=== PATIENT | male | born 1940 | race Caucasian/White ===

== ENCOUNTER 2016-08-11 17:57 | Inpatient (IN) | payer MEDICARE, OTHER ==
--- NOTE | 2016-08-11 18:39 | RAD ---
INDICATION: Neurologic changes code [id number]. COMPARISON: There are no prior studies available for comparison. TECHNIQUE: Contiguous axial sections of the brain were obtained from the skull base to the vertex without contrast. FINDINGS: The ventricles, cisterns and sulci are within normal limits. No significant focal abnormality or mass effect is seen. There is no evidence for hemorrhage. No significant focal osseous abnormality is seen. The visualized portion of the paranasal sinuses and mastoid air cells appear clear. The results of this exam were called to the referring clinician at 1833 hours. IMPRESSION: NO EVIDENCE FOR GROSS ACUTE INFARCT, MASS EFFECT OR HEMORRHAGE.
--- NOTE | 2016-08-11 18:44 | RAD ---
INDICATION: Altered mental status. COMPARISON: Comparison is made with a prior chest x-ray study from February 03, 2011. TECHNIQUE: A portable view of the chest was obtained. FINDINGS: Cardiac and mediastinal contours appear to be within normal limits. The lungs are clear. No pleural effusion is seen. IMPRESSION: NO EVIDENCE FOR ACUTE DISEASE.
[2016-08-11 18:46] LABS: Hematocrit 41 % (42-52); Hemoglobin 13.9 g/dl (14.0-18.0); Mean Corpuscular HGB Conc 34 g/dl (31-36); Mean Corpuscular Hemoglobin 28 pg (27-31); Mean Corpuscular Volume 85 fL (80-94); Mean Platelet Volume 8 um3 (7.4-10.4); Red Cell Distribution Width 15 % (10.5-15); White Blood Count 6.2 10^3/ul (3.5-10.8)
[2016-08-11 18:59] LABS: Albumin 4.2 g/dL (3.2-5.2); BUN/Creatinine Ratio 21.2 (8-20); Calcium 9.5 mg/dL (8.6-10.3); EGFR Non-African American 52.9 (>60); HDL Cholesterol 31.7 mg/dL; Total Bilirubin 0.4 mg/dL (0.2-1.0); Total Protein 7.2 g/dL (6.4-8.9)
[2016-08-11 19:00] LABS: Troponin I 0.01 ng/mL (<0.04)
[2016-08-11] MEDS ORDERED: NS 0.9% 1000 ML* 1,000 ML IV ONE (19:13)
[2016-08-11] MEDS ORDERED: Iodixanol* (CONTRAST) 320 MG/ML 100 ML SDV IV ONE (19:28)
[2016-08-11] MEDS ORDERED: HYDROmorphone INJ* 1 MG/ML CARPUJECT SYRINGE IV ONE (20:33)
[2016-08-11] MEDS ORDERED: Ondansetron INJ* 2 MG/ML VIAL IV ONE (20:33)
--- NOTE | 2016-08-11 20:43 | RAD ---
INDICATION: Confusion. COMPARISON: Comparison is made with a prior CT of the brain from August 11, 2016 and a prior carotid duplex ultrasound from December 09, 2011. TECHNIQUE: A CT angiogram of the head and neck was performed following intravenous injection of 80 ml of Visipaque 320 nonionic contrast. Contiguous axial sections were obtained from the thoracic inlet through the skull vertex. Images were reconstructed in the coronal and sagittal planes and in a 3-D volume rendered format. The distal cervical internal carotid artery diameter is used as the denominator for stenosis measurement. FINDINGS: RIGHT CAROTID: The common carotid artery is widely patent. There is mild plaque within the carotid bulb and proximal internal carotid artery causing less than a 20% stenosis. The internal carotid artery is otherwise widely patent. LEFT CAROTID: The common carotid artery is widely patent. There is mild to moderate calcific and soft plaque within the carotid bulb and proximal internal carotid artery giving rise to less than a 30% stenosis. The internal carotid artery is otherwise widely patent. VERTEBRALS: The vertebral arteries appear patent. CTA BRAIN: There is moderate calcific plaque within the cavernous portion of the internal carotid arteries. There is no evidence for high-grade stenosis or occlusion. The anterior and middle cerebral arteries also appear patent without evidence for high-grade stenosis or occlusion. The vertebral, basilar and posterior cerebral arteries appear patent without evidence for high-grade stenosis or occlusion. The right posterior cerebral artery arises from the posterior communicating artery consistent with normal variation. No aneurysm or vascular malformation is seen. No areas of hypoperfusion are noted. The lung apices appear clear. No significant enlarged lymph nodes are seen within the neck. The parotid, submandibular and thyroid gland appear to be within normal limits. The paranasal sinuses and mastoid air cells appear clear. IMPRESSION: NO EVIDENCE FOR HEMODYNAMICALLY SIGNIFICANT CAROTID STENOSIS OR LARGE VESSEL INTRACEREBRAL THROMBUS. CPT II Codes: 3100F
[2016-08-11] MEDS ORDERED: Aspirin TAB* 325 MG PO ONE (21:53)
[2016-08-11] MEDS ORDERED: Cetirizine* 10 MG TAB PO PRN (22:01)
[2016-08-11] MEDS ORDERED: Dextrose 50% Syringe 50 ML* 25 GM/50 ML SYRINGE IV PUSH PRN (22:03)
[2016-08-11] MEDS ORDERED: HYDROmorphone INJ* 1 MG/ML CARPUJECT SYRINGE ONE (22:36)
[2016-08-11] MEDS ORDERED: Morphine INJ* 2 MG/ML 1 ML CARPUJECT IV PRN (22:44)
[2016-08-11 23:07] LABS: Urine Bacteria Absent (Absent); Urine Bilirubin Negative (Negative); Urine Glucose Negative (Negative); Urine Nitrite Negative (Negative)
--- NOTE | 2016-08-12 00:02 | ED ---
Radha Márquez Erika, scribed for Watson French MD on 08/11/16 at 1844 . Neurological HPI - HPI Summary HPI Summary: Patient is a 75-year-old male presenting to the ED with a CC of confusion starting around 16:00 today. Patient also reports that he has had head pressure left frontal-parietal, similar to a headache, intermittently for at least a week. He states that this morning he did not experience the head pressure, but he did develop it around 16:00 today. Pt and daughter deny known head trauma. Pt does not take blood thinners. He takes HTN medication. Daughter reports that today, pt has had increased chills, dysuria, and elevated blood pressure. She is unable to fully clarify how long these symptoms have been present and how different they are from pt's baseline. Last known well 16:00 today. - History of Current Complaint Chief Complaint: EDAltMentalStatus Stated Complaint: CONFUSED,HIGH BP,HEAD PAIN Time Seen by Provider: 08/11/16 18:16 Last Known Well Date: 16:00 08/11/2016 Hx Obtained From: Patient, Family/Fountain Operator - daughter Onset/Duration: Started hours ago, Still Present Timing: Constant Current Severity: Moderate Headache Location: Frontal - left side, Parietal (Left) Pain Intensity: 5 Pain Scale Used: 0-10 Numeric Character: Other: - pressure Aggravating: Nothing Alleviating: Nothing Associated Signs and Symptoms: Positive: Confusion - Allergy/Home Medications Allergies/Adverse Reactions: Allergies Allergy/AdvReac Type Severity Reaction Status Date / Time Amoxicillin Allergy Intermediate Hives Verified 07/30/16 12:03 Penicillins Allergy Intermediate Hives Verified 07/30/16 12:03 Home Medications: Home Medications Aspirin EC Low Dose* [Ecotrin EC Low Dose*] 81 mg PO DAILY 08/11/16 [History Confirmed 08/11/16] Atorvastatin* [Lipitor*] 40 mg PO DAILY 08/11/16 [History Confirmed 08/11/16] Finasteride TAB* [Proscar TAB*] 5 mg PO DAILY 08/11/16 [History Confirmed ] Insulin GLARGINE(*) [Lantus(*)] 12 units SUBCUT BEDTIME 08/11/16 [History Confirmed 08/11/16] LoraTADine TAB(NF) [Claritin TAB(NF)] 10 mg PO DAILY PRN 08/11/16 [History Confirmed 08/11/16] Metformin HCl [Glucophage Xr] 1,000 mg PO QPM 08/11/16 [History Confirmed ] Metformin HCl [Glucophage Xr] 500 mg PO QAM 08/11/16 [History Confirmed 08/11/16 ] Metoprolol Succinate XL TAB* [Toprol XL TAB*] 25 mg PO DAILY 08/11/16 [History Confirmed 08/11/16] Ramipril CAP* [Altace CAP*] 20 mg PO DAILY 08/11/16 [History Confirmed 08/11/16] glipiZIDE TAB* [Glucotrol TAB*] 2.5 mg PO QAM 08/11/16 [History Confirmed ] glipiZIDE TAB* [Glucotrol TAB*] 5 mg PO QPM 08/11/16 [History Confirmed 08/11/16 ] PMH/Surg Hx/FS Hx/Imm Hx Endocrine/Hematology History: Reports: Hx Diabetes - type II on oral meds and insulin Cardiovascular History: Reports: Hx Hypertension, Other Cardiovascular Problems/ Disorders - enlarged aorta Respiratory History: Reports: Hx Asthma - pt states he was born with no symptoms , no inhaler History: Reports: Hx Kidney Stones - pt states "may be developing a stone." as per MD, Other Problems/Disorders Musculoskeletal History: Reports: Hx Arthritis - bilaterl feet, hands and in the back Sensory History: Reports: Hx Cataracts - removed 2 years ago, Hx Contacts or Glasses - glasses Opthamlomology History: Reports: Hx Cataracts - removed 2 years ago, Hx Contacts or Glasses - glasses - Cancer History Cancer Type, Location and Year: colon ca - Surgical History Surgery Procedure, Year, and Place: colon cancer removed and possibly apendectomy 2006- [facility] [place]. bilateral cataracts removed [facility] Hx Anesthesia Reactions: No Infectious Disease History: Yes Infectious Disease History: Denies: Traveled Outside the [place] in Last 30 Days - Family History Family History: Denies FHx anesthesia reaction - Social History Alcohol Use: None Substance Use Type: Reports: None Smoking Status (MU): Current Every Day Smoker Type: Cigarettes Length of Time of Smoking/Using Tobacco: 50 years Have You Smoked in the Last Year: Yes Review of Systems Constitutional: Other - elevated BP Positive: Chills Positive: dysuria Neurological: Other - confusion Positive: Headache - head pressure All Other Systems Reviewed And Are Negative: Yes Physical Exam Triage Information Reviewed: Yes Vital Signs On Initial Exam: Initial Vitals Temp Pulse Resp BP Pulse Ox 98.7 F 67 20 223/97 100 08/11/16 18:07 08/11/16 18:07 08/11/16 18:07 08/11/16 18:07 08/11/16 18:07 Vital Signs Reviewed: Yes Appearance: Positive: Well-Appearing, Pain Distress Skin: Positive: Warm, Skin Color Reflects Adequate Perfusion, Dry Head/Face: Positive: Normal Head/Face Inspection Eyes: Positive: Normal ENT: Positive: Normal ENT inspection Neck: Positive: Supple, Nontender Respiratory/Lung Sounds: Positive: Clear to Auscultation, Breath Sounds Present Cardiovascular: Positive: RRR Abdomen Description: Positive: Nontender, Soft Bowel Sounds: Positive: Present Musculoskeletal: Positive: Normal Neurological: Positive: Sensory/Motor Intact, Alert, Oriented to Person Place, Time, CN Intact II-III, Other - mentating slowly Psychiatric: Positive: Affect/Mood Appropriate Diagnostics - Vital Signs Vital Signs Temp Pulse Resp BP Pulse Ox 08/11/16 18:07 98.7 F 67 20 223/97 100 - Laboratory Lab Results: Lab Results 08/11/16 08/11/16 08/11/16 Range/Units 18:19 18:19 18:19 WBC 6.2 (3.5-10.8) 10^3/ul RBC 4.90 (4.0-5.4) 10^6/ul Hgb 13.9 L (14.0-18.0) g/dl Hct 41 L (42-52) % MCV 85 (80-94) fL MCH 28 (27-31) pg MCHC 34 (31-36) g/dl RDW 15 (10.5-15) % Plt Count 181 (150-450) 10^3/ul MPV 8 (7.4-10.4) um3 Neut % (Auto) 56.9 (38-83) % Lymph % (Auto) 28.4 (25-47) % Mcculloch % (Auto) 9.7 H (1-9) % Eos % (Auto) 4.3 (0-6) % Baso % (Auto) 0.7 (0-2) % Absolute Neuts (auto) 3.5 (1.5-7.7) 10^3/ul Absolute Lymphs (auto) 1.8 (1.0-4.8) 10^3/ul Absolute Monos (auto) 0.6 (0-0.8) 10^3/ul Absolute Eos (auto) 0.3 (0-0.6) 10^3/ul Absolute Basos (auto) 0 (0-0.2) 10^3/ul Absolute Nucleated RBC 0 10^3/ul Nucleated RBC % 0 INR (Anticoag Therapy) 0.96 (0.89-1.11) APTT 27.3 (26.0-36.3) seconds Sodium 136 (133-145) mmol/L Potassium 4.0 (3.5-5.0) mmol/L Chloride 102 (101-111) mmol/L Carbon Dioxide 28 (22-32) mmol/L Anion Gap 6 (2-11) mmol/L BUN 28 H (6-24) mg/dL Creatinine 1.32 H (0.67-1.17) mg/dL Est GFR ( Amer) 68.0 (>60) Est GFR (Non-Af Amer) 52.9 (>60) BUN/Creatinine Ratio 21.2 H (8-20) Glucose 143 H (70-100) mg/dL POC Glucose (mg/dL) (74-106) mg/dL Lactic Acid (0.5-2.0) mmol/L Calcium 9.5 (8.6-10.3) mg/dL Total Bilirubin 0.40 (0.2-1.0) mg/dL AST 15 (13-39) U/L ALT 16 (7-52) U/L Alkaline Phosphatase 65 (34-104) U/L Troponin I 0.01 (<0.04) ng/mL Total Protein 7.2 (6.4-8.9) g/dL Albumin 4.2 (3.2-5.2) g/dL Globulin 3.0 (2-4) g/dL Albumin/Globulin Ratio 1.4 (1-3) Triglycerides 161 mg/dL Cholesterol 129 mg/dL LDL Cholesterol 65 mg/dL HDL Cholesterol 31.7 mg/dL Blood Type Antibody Screen 08/11/16 08/11/16 08/11/16 Range/Units 18:19 18:19 18:38 WBC (3.5-10.8) 10^3/ul RBC (4.0-5.4) 10^6/ul Hgb (14.0-18.0) g/dl Hct (42-52) % MCV (80-94) fL MCH (27-31) pg MCHC (31-36) g/dl RDW (10.5-15) % Plt Count (150-450) 10^3/ul MPV (7.4-10.4) um3 Neut % (Auto) (38-83) % Lymph % (Auto) (25-47) % Mcculloch % (Auto) (1-9) % Eos % (Auto) (0-6) % Baso % (Auto) (0-2) % Absolute Neuts (auto) (1.5-7.7) 10^3/ul Absolute Lymphs (auto) (1.0-4.8) 10^3/ul Absolute Monos (auto) (0-0.8) 10^3/ul Absolute Eos (auto) (0-0.6) 10^3/ul Absolute Basos (auto) (0-0.2) 10^3/ul Absolute Nucleated RBC 10^3/ul Nucleated RBC % INR (Anticoag Therapy) (0.89-1.11) APTT (26.0-36.3) seconds Sodium (133-145) mmol/L Potassium (3.5-5.0) mmol/L Chloride (101-111) mmol/L Carbon Dioxide (22-32) mmol/L Anion Gap (2-11) mmol/L BUN (6-24) mg/dL Creatinine (0.67-1.17) mg/dL Est GFR ( Amer) (>60) Est GFR (Non-Af Amer) (>60) BUN/Creatinine Ratio (8-20) Glucose (70-100) mg/dL POC Glucose (mg/dL) 140 H (74-106) mg/dL Lactic Acid 1.0 (0.5-2.0) mmol/L Calcium (8.6-10.3) mg/dL Total Bilirubin (0.2-1.0) mg/dL AST (13-39) U/L ALT (7-52) U/L Alkaline Phosphatase (34-104) U/L Troponin I (<0.04) ng/mL Total Protein (6.4-8.9) g/dL Albumin (3.2-5.2) g/dL Globulin (2-4) g/dL Albumin/Globulin Ratio (1-3) Triglycerides mg/dL Cholesterol mg/dL LDL Cholesterol mg/dL HDL Cholesterol mg/dL Blood Type A Positive Antibody Screen Negative Result Diagrams: 08/11/16 18:19 08/11/16 18:19 Lab Statement: Any lab studies that have been ordered have been reviewed, and results considered in the medical decision making process. - Radiology CXR Radiology Interpretation Completed By: Radiologist - IMPRESSION: NO EVIDENCE FOR ACUTE DISEASE. - CT Brain CT CT Interpretation Completed By: Radiologist - IMPRESSION: NO EVIDENCE FOR GROSS ACUTE INFARCT, MASS EFFECT OR HEMORRHAGE. Head CTA CT Interpretation Completed By: Radiologist - IMPRESSION: NO EVIDENCE FOR HEMODYNAMICALLY SIGNIFICANT CAROTID STENOSIS OR LARGE VESSEL INTRACEREBRAL THROMBUS. - EKG 21:41 Cardiac Rate: NL - at 82 bpm EKG Rhythm: Sinus Rhythm EKG Interpretation: LBBB EKG Comparison: Other - No old EKG available for comparison NIH Scale - NIH Scale Level of Consciousness: Alert/Keenly Responsive Ask Patient the Month and His/Her Age: Both Correct Ask Pt to Open/Close Eyes and Rheostat Assembler/Release Non-Paretic Hand: Both Correctly Best Gaze (Only Horizontal Eye Movement): Normal Visual Field Testing: No Visual Loss Facial Paresis-Pt to Smile & Close Eyes or Grimace Symmetry: Normal/Symmetrical Motor Function - Right Arm: No Drift-Holds 10 Seconds Motor Function - Left Arm: No Drift-Holds 10 Seconds Motor Function - Right Leg: No Drift-Holds 10 Seconds Motor Function - Left Leg: No Drift-Holds 10 Seconds Limb Ataxia-Must be out of Proportion to Weakness Present: Absent Sensory (Use Pinprick to Test Arms/Legs/Trunk/Face): Normal Best Language (Describe Picture, Name Items): No Aphasia Dysarthria (Read Several Words): Normal Extinction and Inattention: No Abnormality Total Score: 0 Re-Evaluation - Re-Evaluation First Eval Re-Evaluation Time: 21:43 Comment: Expressive aphasia now noted. Will discuss with Dr. Sibley again. Course/Dx - Course Course Of Treatment: Mr. Diogenes Farley presented with a C/O confusion. His daughter stated that it started about 1600 "give or take" although he felt that it had been happening to some extent all afternoon. He was apparently unable to answer questions at all in triage but did answer questions for me although he seemed sloww to respond and perhaps a bit confused. I felt that his NIH scale was 0 on initial eval. After his labs and CT returned negative, I re- evaluated him and at that point he seemed worse and he seemed more like an expressive aphasia with wrong words and obvious frustration with himself. He was not a thrombolytic candidate because of the uncertain onset time and low NIH score. - Diagnoses Provider Diagnoses: Confusion During the Visit The Following Alert/Code Occurred: Code Hou - Physician Notifications Discussed Care of Patient With: Dr. Wilkerson (radiologist) at 18:34 - informed of negative Brain CT. Dr. Sibley (neurology) at 18:52 - discussed patient's history and Brain CT results. Recommends CTA Head/Neck. Dr. Sibley at 21:39 - discussed CTA results. Recommends LP. Dr. Sibley at 21:50 - recommends admission. Dr. Lawson (hospitalist) at 21:55 - agrees to admit Discharge - Discharge Plan Condition: Stable Disposition: ADMITTED TO [facility] documentation as recorded by the Radha lux Erika accurately reflects the service I personally performed and the decisions made by me, Watson French MD.
--- NOTE | 2016-08-12 02:09 | HP ---
HISTORY AND PHYSICAL: DATE OF ADMISSION: 08/11/16 CHIEF COMPLAINT: Headache and difficulty speaking. HISTORY OF PRESENT ILLNESS: The patient is a 75-year-old gentleman who apparently was in his usual state of health this morning when he went to get blood work on his own today. His daughter was asleep, when she got up, she saw him that he was saying his head was hurting, mostly on the left side. She took his blood presser at that point and it was 258/80. She awaited sometime and it went down to 214/93. He also appeared somewhat confused, so she took him to the ER. She said he was having trouble with word finding and sentence sequence. He feels cold, but denies any fever. He has no neck stiffness and no new photophobia. He has some trouble with his balance and there is a question if he had blurry vision earlier. In the ED upon evaluation, he is having trouble making full sentences and thinks he is saying the right things, but is not saying the right things. PAST MEDICAL HISTORY: He does have a past medical history significant for hypertension, diabetes mellitus, colon cancer, degenerative joint disease, and aortic valve disorder. CURRENT MEDICATIONS: As follows: 1. Ramipril 20 mg daily. 2. Metoprolol succinate XL 25 mg daily. 3. Lantus insulin 12 units subcu at bedtime. 4. Lipitor 40 mg daily. 5. Metformin 500 mg in the morning and 1000 mg in the evening. 6. Glipizide 2.5 mg in the morning and 5 mg in the evening. 7. Flonase nasal spray 2 sprays both nares daily. 8. Finasteride 5 mg daily. 9. Loratadine 10 mg daily. 10. Aspirin 81 mg daily. ALLERGIES: He has an allergy/adverse reaction to PENICILLIN. FAMILY HISTORY: Mother at 51 with breast cancer and father at 78 of an GA. SOCIAL HISTORY: He smokes half a pack a day. He used to smoke 2 to 3 packs a day for 60 years. No alcohol or recreational drug use. He is a retired master engineer operations and maintenance. He is a x2. He has 4 children. His daughter, Patsy Farley, is his health care proxy. REVIEW OF SYSTEMS: A 14-point review of systems was completed with the patient. All pertinent positives and negatives are in the history of present illness. Otherwise it is negative. PHYSICAL EXAMINATION GENERAL: A pleasant gentleman, lying in bed, in no acute distress. VITAL SIGNS: Blood pressure 199/86, pulse ox 97%, respiratory rate 19 breaths per minute, heart rate 89 beats per minute, and temperature is 98.7 degrees. HEENT: Normocephalic, atraumatic. Pupils are equal, round, and reactive to light. Moist mucous membranes. NECK: Supple. No JVD, bruits, palpable thyroid, or lymphadenopathy. CHEST: Clear to auscultation and percussion bilaterally. CARDIOVASCULAR: S1, S2 appreciated, 3/6 murmur at the left sternal border. ABDOMEN: Positive bowel sounds in all 4 quadrants. Soft, nontender, and nondistended. EXTREMITIES: No cyanosis, clubbing, or edema; +2 peripheral pulses bilaterally. NEUROLOGIC: He is alert and oriented x3. He does have what appears to be an expressive aphasia. He has gotten questionable [id number] on both sides. His cranial nerves II through XII grossly intact. His motor strength is 5/5 bilaterally. He has no evidence of facial droop. SKIN: No rashes or distinct abnormalities. DIAGNOSTIC STUDIES/LAB DATA: White count 6.2, hemoglobin 13.9, hematocrit 41 , and platelets 181. Sodium 136, potassium 4.0, chloride 102, CO2 28, BUN 28, creatinine 1.22, and glucose 140. INR 0.96. EKG shows normal sinus rhythm at a rate of 82 beats per minute, left axis deviation, left bundle branch-block, and left anterior hemiblock. Brain CT was interpreted by Radiology as no evidence for gross acute infarct, mass effect, or hemorrhage. Chest x-ray was interpreted by Radiology as no evidence for acute disease. Head CTA was interpreted by Radiology as no evidence for hemodynamically significant carotid stenosis or large vessel intracerebral thrombus. ASSESSMENT/PLAN: 1. Cerebrovascular accident: I do think that the patient might have had an event. He also seems to have partially expressive may be in a partially receptive aphasia. We will place him on telemetry floor. We will do neuro checks q.4 hours. I will an MRI in the morning and transthoracic echo with bubble study. Neurology will seen him in the AM. Check a lipid profile as well. Continue aspirin. We will add Plavix as well. 2. Hypertension: Hypertensive encephalopathy is also in the differential at this time. His blood pressure is quite high. I would like to keep him with systolic over 160, but I think it is a bit high for what is right now. We will try to maintain a lower pressure. 3. Diabetes mellitus: We will place him on fingersticks with sliding scale insulin. Hold oral hypoglycemics. 4. FEN: N.P.O. with swallow evaluation. 5. DVT prophylaxis: Heparin subcu. 6. Code status: The patient is a full code. TIME SPENT: Over 80 minutes was spent on this H and P; more than 45 minutes of which was spent in direct [id number] contact with the patient, evaluation, physical exam, counseling, and coordination of care. CC: Ceci Carlson MD * [id number]/CPS #: [id number] MTDDean
[2016-08-12] MEDS: Heparin VIAL(*) 5000 UNITS/ML VIAL (FIVE THOUSAND) SUBCUT SCH ×3 (05:20→22:22)
[2016-08-12] MEDS ORDERED: Clopidogrel TAB* 75 MG PO SCH (09:00)
[2016-08-12] MEDS: Insulin LISPRO* 1 UNITS UNIT SUBCUT SCH ×4 (09:10→22:18)
[2016-08-12] MEDS: Atorvastatin* 40 MG TAB PO SCH (09:11)
[2016-08-12] MEDS: Aspirin EC Low Dose* 81 MG TAB.EC PO SCH (09:11)
[2016-08-12] MEDS: Ramipril CAP* 10 MG PO SCH (09:11)
[2016-08-12] MEDS: Finasteride TAB* 5 MG PO SCH (09:11)
[2016-08-12] MEDS: Metoprolol Succinate XL TAB* 25 MG PO SCH (09:11)
[2016-08-12] MEDS: Fluticasone NASAL SPRAY 50MCG* 16 gm SPRAY BTL BOTH NARES SCH (09:12)
--- NOTE | 2016-08-12 11:29 | RAD ---
HISTORY: Stroke, expressive aphasia COMPARISONS: CT dated August 11, 2016 TECHNIQUE: The following sequences were obtained of the head: Sagittal T1-weighted images, axial T2-weighted images, axial FLAIR images, axial susceptibility weighted images, axial T1-weighted images. Additionally, axial diffusion-weighted images were obtained with calculated apparent diffusion coefficients. FINDINGS: HEMORRHAGE/INFARCT: There is no hemorrhage or acute infarct. MASSES/SHIFT: There is no mass or shift. EXTRA-AXIAL SPACES/MENINGES: There are no extra-axial fluid collections. SULCI AND VENTRICLES: The sulci and ventricles are normal in size and position for the patient's stated age. CEREBRUM: There are multiple scattered small foci of elevated T2/FLAIR signal within the periventricular and subcortical white matter. BRAINSTEM: There are no focal parenchymal abnormalities. CEREBELLUM: There are no focal parenchymal abnormalities. The cerebellar tonsils are normal in size and position. SELLA: The sella is normal. PINEAL: The pineal region is clear. CP ANGLE/TEMPORAL BONES: The labyrinthine structures are grossly normal. VESSELS: Normal flow-voids are noted within the visualized vertebral vasculature. DIFFUSION ABNORMALITIES: There are no diffusion abnormalities. PARANASAL SINUSES/MASTOIDS: The paranasal sinuses are clear. ORBITS: The orbits are unremarkable. BONES AND SOFT TISSUE: No bone or soft tissue abnormalities are noted. OTHER: None IMPRESSION: 1. THERE ARE MULTIPLE FOCI OF ELEVATED T2/FLAIR SIGNAL WITHIN THE PERIVENTRICULAR AND SUBCORTICAL WHITE MATTER. WHILE THESE FINDINGS ARE NONSPECIFIC, THEY CAN BE SEEN IN ASSOCIATION WITH MIGRAINE HEADACHE, THE SEQUELA OF PREVIOUS INFECTION OR INFLAMMATION, AND CHRONIC SMALL VESSEL ISCHEMIA. DEMYELINATING DISEASE IS ALSO WITHIN THE DIFFERENTIAL, BUT IS CONSIDERED LESS LIKELY IN THE ABSENCE OF THE APPROPRIATE CLINICAL PRESENTATION. 2. NO RESTRICTED DIFFUSION TO SUGGEST ACUTE INFARCT
--- NOTE | 2016-08-12 15:21 | PN ---
Subjective Date of Service: 08/12/16 Interval History: Patient seen this morning and again after evaluated by Dr. Sibley. Symptoms have resolved and he reports feeling back to baseline. Endorses occasional headaches with visual symptoms. Does not think he missed BP medications yesterday. Family History: Unchanged from Admission Social History: Unchanged from Admission Past Medical History: Unchanged from Admission Objective Active Medications: Aspirin (Aspirin Ec Low Dose*) 81 mg PO DAILY [facility] Atorvastatin Calcium (Lipitor*) 40 mg PO DAILY [facility] Cetirizine HCl (Zyrtec*) 10 mg PO DAILY PRN Clopidogrel Bisulfate (Plavix Tab*) 75 mg PO DAILY [facility] Dextrose (D50w Syringe 50 Ml*) 12.5 gm IV PUSH .FOR FS < 60 - SS PRN Finasteride (Proscar Tab*) 5 mg PO DAILY [facility] Fluticasone Propionate (Flonase Nasal [place] 50mcg*) 2 spray BOTH NARES DAILY [facility] Heparin Sodium (Porcine) (Heparin Vial(*)) 5,000 units SUBCUT Q8HR [facility] Insulin Glargine (Lantus(*)) 12 units SUBCUT BEDTIME [facility] Insulin Human Lispro (Humalog*) 0 units SUBCUT ACHS [facility] Magnesium Oxide (Magox 400 Tab*) 400 mg PO DAILY [facility] Metoprolol Succinate (Toprol Xl Tab*) 25 mg PO DAILY [facility] Morphine Sulfate (Morphine Inj (Syringe)*) 2 mg IV Q4H PRN Ramipril (Altace Cap*) 20 mg PO DAILY [facility] Vital Signs 08/11/16 08/11/16 08/11/16 22:15 22:45 22:58 Temperature Pulse Rate 85 91 89 Respiratory 17 26 22 Rate Blood Pressure 189/78 174/71 (mmHg) O2 Sat by Pulse 95 94 96 Oximetry 08/11/16 08/11/16 08/11/16 23:00 23:15 23:45 Temperature 98.1 F Pulse Rate 90 92 90 Respiratory 25 18 16 Rate Blood Pressure 182/71 177/68 162/74 (mmHg) O2 Sat by Pulse 95 95 98 Oximetry 08/12/16 08/12/16 08/12/16 07:39 08:00 08:44 Temperature 97.9 F Pulse Rate 73 69 Respiratory 18 14 14 Rate Blood Pressure 108/53 118/60 (mmHg) O2 Sat by Pulse 98 95 Oximetry 02/02/17 11:26 Temperature 98.2 F Pulse Rate 64 Respiratory 18 Rate Blood Pressure 121/55 (mmHg) O2 Sat by Pulse 96 Oximetry Oxygen Devices in Use Now: None Appearance: Elderly, M, laying in bed in NAD Eyes: No Scleral Icterus Ears/Nose/Mouth/Throat: Mucous Membranes Moist Neck: NL Appearance and Movements; NL JVP Respiratory: Symmetrical Chest Expansion and Respiratory Effort, Clear to Auscultation Cardiovascular: NL Sounds; No Murmurs; No JVD, - - 3/6 STEPHY heard best at apex Abdominal: NL Sounds; No Tenderness; No Distention Lymphatic: No Cervical Adenopathy Extremities: No Edema Skin: No Rash or Ulcers Neurological: Alert and Oriented x 3, - - CN II-XII intact, strength 5/5 throughout UE and LE, sensation intact and symmetric Result Diagrams: 08/11/16 18:19 08/11/16 18:19 Additional Lab and Data: Assess/Plan/Problems-Billing Assessment: Accelerated HTN, headache, aphasia and confusion in a 75 yo M with hx of HTN, DM - Patient Problems (1) Headache Current Visit: Yes Comment: aphasia. Appreciate Neurology assistance. Possibly due to MELCHOR/migraine vs HTN. CT, CTA, MRI all negative. Echo done and pending read. Continue ASA alone. Start daily Mg for migraine ppx. (2) HTN (hypertension) Current Visit: Yes Comment: Unclear what triggered home elevated BPs. Have normalized here on home medications alone, will continue. (3) Diabetes Current Visit: Yes Comment: Continue HISS and Lantus 12 units qpm (4) DVT prophylaxis Current Visit: Yes Comment: HSQ Status and Disposition: Monitor on telemetry for another night
--- NOTE | 2016-08-12 16:28 | ECHO ---
Patient: GRIFFIN PATTERSON [facility] Rec#: [id number] : 1940 Date: 08/12/2016 Age: 75y Height: 170 cm / 66.9 in Weight: 107 kg / 235.8 lbs Sex: M BSA: 2.17 Room#: [facility] Admit Date#: 08/11/2016 Type: Inpatient Referring: Rodolfo Lawson MD Reading: Matti Blackwell MD Straddle Bug Operator: Shayy Choudhury Straddle Bug Operator: Sunita Beebe RDCS CC: Masood Carbajal MD CC: Ceci Carlson MD Transthoracic Echocardiogram Indication: CVA BP: 162/74 HR: 64 Rhythm: NSR Findings History: HTN, DM, Colon Cancer, AoV disorder, degerative joint disease, tobacco use. Technical Comments: The study is technically limited due to the patient's smoking history. Completed at 1440. Left Ventricle: The left ventricular chamber size is normal. Mild concentric left ventricular hypertrophy is observed. Global left ventricular wall motion and contractility are within normal limits. There is normal left ventricular systolic function. The estimated ejection fraction is 60-65%. Abnormal left ventricular diastolic filling is observed, consistent with impaired relaxation. The lack of left atrial enlargement suggests this finding may not have clinical significance Left Atrium: The left atrial chamber size is normal. Right Ventricle: The right ventricular cavity size is normal. The right ventricular global systolic function is normal. Right Atrium: The right atrium is slightly dilated. There is no patent foramen ovale visualized. A patent foramen ovale is not demonstrated with color Doppler and agitated contrast. Aortic Valve: The aortic valve is trileaflet. Systolic excursion of the aortic valve cusps is reduced. Moderate aortic cusp sclerosis is present. There is a trace of aortic regurgitation. There is mild aortic stenosis. The mean gradient of the aortic valve is 17.17 mmHg. The highest aortic valve velocity was obtained with the standard probe from the A5C view. Mitral Valve: There is mitral annular calcification. The mitral valve leaflets are mildly thickened. There is a trace of mitral regurgitation. There is no evidence of mitral stenosis. Tricuspid Valve: The tricuspid valve leaflets are normal. There is a physiologic tricuspid regurgitation. No pulmonary hypertension is noted. There is no tricuspid stenosis. Pulmonic Valve: The pulmonic valve appears normal. There is trace to mild pulmonic regurgitation. There is no pulmonic stenosis. Pericardium: There is no pericardial effusion. A pericardial fat pad is visualized. Aorta: There is no dilatation of the ascending aorta. There is no dilatation of the aortic arch. There is no dilation of the aortic root. Pulmonary Artery: The main pulmonary artery appears normal. Venous: The venous system is not well visualized. Contrast: Normal saline was used as contrast for the bubble study. Intravenous contrast was used to help determine presence of intracardiac shunting. Conclusions Mild concentric left ventricular hypertrophy is observed. There is normal left ventricular systolic function. The estimated ejection fraction is 60-65%. There is a trace of aortic regurgitation. There is mild aortic stenosis. There is a trace of mitral regurgitation. There is trace to mild pulmonic regurgitation. No patent foramen ovale is not demonstrated with color Doppler and agitated contrast. Compared to report of prior study from 06/22/2016 the overall LV systolic function is better (was reported as 55-60 %), a higher mean gradient across the aortic valve was seen on the current study(no aortic valve area was quoted on prior study, but a comment of "mild aortic stenosis" was made). Measurements Name Value Normal Range RVIDd (AP) 2D 2.64 cm (0.9 - 2.6) RVIDd (2D) index 1.22 cm/m2 - RVDdMajor (2D) 3.9 cm (2.2 - 4.4) RAd ISD 4CH 5.5 cm (3.4 - 4.9) RA (A4C)W 3.9 cm (2.9 - 4.6) IVSd (2D) 1.4 cm (0.6 - 1) LVPWd (2D) 1.3 cm (0.6 - 1) LVIDd (2D) 4.1 cm (3.6 - 5.4) LVIDs (2D) 2.9 cm - LV FS (2D) 29 % (25 - 45) Aortic Annulus 2.5 cm (1.4 - 2.6) Ao root diameter (2D) 3.2 cm (2.1 - 3.5) Ascending Ao 3.1 cm (2.1 - 3.4) Aortic arch 2.4 cm (1.8 - 3.4) LA dimension (AP) 2D 3.8 cm (2.3 - 3.8) LAd ISD 4CH 5.6 cm (2.9 - 5.3) LA ISD 4CH W 3.8 cm (2.5 - 4.5) Name Value Normal Range LA ESV SP 4CH (A/L) 51 ml - LA ESV SP 2CH (A/L) 86 ml - LA ESV BP (A/L) 66 ml - LA ESV BP (A/L) index 30 ml/m2 - LA ESV SP 4CH (MOD) 48 ml - LA ESV SP 2CH (MOD) 85 ml - Name Value Normal Range MV E-wave Vmax 0.82 m/sec - MV deceleration time 292 msec - MV A-wave Vmax 1 m/sec - MV E:A ratio 0.82 ratio - LV septal e' Vmax 0.06 m/sec - LV lateral e' Vmax 0.05 m/sec - LV E:e' septal ratio 13.67 ratio - LV E:e' lateral ratio 16.4 ratio - Name Value Normal Range AV Vmax 2.95 m/sec - AV VTI 62.8 cm - AV peak gradient 34.81 mmHg - AV mean gradient 17.17 mmHg - LVOT diameter 2.2 cm - LVOT Vmax 1.3 m/sec - LVOT VTI 34.98 cm - LVOT peak gradient 7.07 mmHg - LVOT mean gradient 5.06 mmHg - STONEY (continuity Vmax) 1.7 cm2 - STONEY (continuity VTI) 2.1 cm2 - Name Value Normal Range TR Vmax 1.6 m/sec - TR peak gradient 10 mmHg - RAP 3 mmHg - RVSP 13 mmHg - IVC diameter 1.9 cm - Name Value Normal Range PV Vmax 0.93 m/sec - PV peak gradient 3.46 mmHg -
[2016-08-12] MEDS: Magnesium Oxide TAB* 400 MG PO SCH (17:58)
--- NOTE | 2016-08-12 20:59 | CONS ---
NEUROLOGY CONSULTATION: DATE OF CONSULT: 08/12/16 LOCATION: Inpatient room 447. REFERRING PROVIDER: Dr. Kaplan. CHIEF COMPLAINT: Difficulty speaking, headache. HISTORY OF PRESENT ILLNESS: Diogenes Farley is a 75-year-old right-handed man who was admitted to the emergency room last night when he awoke from a nap at about 2 o'clock with a bad headache and difficulty coming up with words. His daughter was present during the latter half of my evaluation and she said that he was trying to come up with words, that he would interpose words, and sometimes produce words that were not in context at all. He also had a very bad headache and he says he thinks he actually laid down to take a nap because of a bad headache. He presented to the emergency room where his blood pressure was markedly elevated. He had a CT scan of the brain, which was unremarkable. Initially, he just seemed confused by my conversations with Dr. French last evening, but after about 3 or 4 hours, it seemed more clear to Dr. French that he was actually aphasic. He had a severe headache and his blood pressure was elevated and that was treated symptomatically last night with beta blockers. By the time he went to bed last night, the headache was improving and when he woke up this morning, he was able to speak normally and the headache was gone. His blood pressure remained quite elevated until earlier this morning when it came down to under 120/50. Last night, it was running as high as 223/97 and by late in the evening, it was running about 190/80. He has a history of hypertension. He says he thinks he take his medications regularly, but later on , he says he might miss it at times. In regards to headaches, he says he is getting headaches since he was about 12 years of age. He calls them sinus headaches. He had episodes last night where he had "eye blinking." With further questioning, he describes bright visual scotomas that he says were in his left eye and are somewhat squared shaped and there is some color to them, but they are hard to describe. He says he has experienced these about once a month throughout his adult life and they are associated with bad headaches. He has never had difficulty speaking with the headaches before, however. He denies sensory symptoms associated with his headaches or last night. PAST MEDICAL HISTORY: Notable for hypertension, ongoing tobacco use, diabetes, BPH, treatment for colon cancer, aortic valve disease. MEDICATIONS: At home include: 1. Ramipril 20 mg p.o. daily. 2. Metoprolol succinate XL 25 mg p.o. daily. 3. Insulin 12 units subcutaneous at bedtime. 4. Lipitor 40 mg p.o. daily. 5. Metformin 500 mg q.a.m. and 1000 mg q.h.s. 6. Glipizide 2.5 mg q.a.m. and 5 mg q.h.s. 7. Finasteride 5 mg p.o. daily. 8. Loratadine 10 mg p.o. daily. 9. Aspirin 81 mg p.o. daily. FAMILY HISTORY: Notable for what sounds to be migraines with aura in his sister as related by a brother who is present and also in a granddaughter who says she has severe migraines. SOCIAL HISTORY: He smokes a half a pack of cigarettes per day. He does not drink alcohol. He lives alone and is . He is a retired manual lathe machinist. REVIEW OF SYSTEMS: He gets headaches as described above about once a month or more. He is retired. He denies shortness of breath or chest pain. No recent falls or head trauma, but he did fall off a bridge when he was about 12, not requiring hospitalization. No recent fevers, infections, or weight loss. No recent intestinal problems. PHYSICAL EXAMINATION: He is a little bit overweight. He has been afebrile throughout his hospital stay. Blood pressure most recently is 121/55, heart rate 70 and regular, respiratory rate about 18, oxygen saturation 96% on room air. Heart is in a regular rate and rhythm with a grade 2 to 3 over 6 systolic murmur, upper right sternal border. Carotid pulses are present, and it sounds to be a transmitted murmur, but not necessarily bruits. Distal pulses are present. Head is atraumatic. Neck is supple. Neurological Exam: Pupils react equally from 3 to 2 mm. Funduscopic exam reveals sharp disks and arterial tortuosity and AV nicking. I do not see any hemorrhages. Eye movements are normal. Visual lucas are full to confrontation. Facial musculature is intact and symmetric as is facial sensation to light touch. Palate and tongue appear normal. Tongue protrudes in the midline. Palate rises symmetrically. There is no dysarthria. He is a little hard of hearing. Neck strength is normal. Motor exam reveals normal muscle tone and strength proximally and distally in the upper and lower extremities. There is no rigidity. There is no pronator drift. Sensory exam is notable for mild vibratory loss in the feet, normal light touch in all limbs. Pin discrimination is normal in the limbs. There is a mild sustention tremor in the fingers. There is no rest or action tremor on [id number] maneuver. Finger taps are normal in the hands. Gait is cautious, but independent. Reflexes are present and symmetric other than absent ankle reflexes. Plantar responses are flexor bilaterally. Mental status finds him to be alert and oriented to person, place, and time. Recent and remote memory are intact. Attention, concentration, and fund of knowledge are all adequate. Language is fluent. He makes confrontation, naming. He is a little bit slow in word list generation, but can do it. Repetition is intact. DIAGNOSTIC STUDIES/LAB DATA: Includes a CBC on admission notable for hemoglobin 13.9 and otherwise a completely normal CBC. INR and PTT are within normal limits. Chemistry profile on admission notable for creatinine 1.32, which is stable for him. Glucose last evening was 143. Last hemoglobin A1c in the record from 03/22/16 is 6.9%. Cholesterol this morning 129. LDL 65. He had an MRI of the brain which I reviewed and reveals small amount of nonspecific white matter changes, but no acute infarctions. CT angiogram of the head and neck last night revealed some atherosclerotic plaquing, but no significant stenosis. CT of the brain likewise did not reveal any significant abnormalities. IMPRESSION: Uncontrolled hypertension and migraine headache. He sound to have been aphasic last night which may have been from a migraine, but certainly warrants further workup for cerebrovascular disease given his age and vascular risk factors. Currently, he is asymptomatic and his blood pressure is under control on his normal home medications. He had an echocardiogram and carotid ultrasounds, both of which the results are pending. If those are normal and he remains asymptomatic, I think he can be discharged home on the addition of aspirin 81 mg per day and magnesium supplementation 300 mg per day as a migraine preventative. I have discussed my impressions with his family and we will follow up when the other studies have been completed. [id number]/[facility] #: [id number] [facility]
[2016-08-12] MEDS ORDERED: Insulin GLARGINE(*) 1 UNITS UNIT SUBCUT SCH (21:00)
[2016-08-13] MEDS: Heparin VIAL(*) 5000 UNITS/ML VIAL (FIVE THOUSAND) SUBCUT SCH (05:23)
[2016-08-13 07:36] VITALS: BP 126/47
--- NOTE | 2016-08-13 10:14 | DCNOTE ---
Patient seen this morning. Said he had a mild headache again this morning, about 1/3 as severe as [employer]. Lasted for one hour, no associated visual changes. On exam, RRR, s1 and s2 present, STEPHY, lungs CTA B/L, neuro exam benign Echo WNL, plan to discharge home today on oral Mg and outpatient f/u with PCP, Neuro.
[2016-08-13] MEDS: Insulin LISPRO* 1 UNITS UNIT SUBCUT SCH (11:13)
[2016-08-13] MEDS: Metoprolol Succinate XL TAB* 25 MG PO SCH (11:22)
[2016-08-13] MEDS: Finasteride TAB* 5 MG PO SCH (11:22)
[2016-08-13] MEDS: Atorvastatin* 40 MG TAB PO SCH (11:22)
[2016-08-13] MEDS: Ramipril CAP* 10 MG PO SCH (11:22)
[2016-08-13] MEDS: Aspirin EC Low Dose* 81 MG TAB.EC PO SCH (11:22)
[2016-08-13] MEDS: Magnesium Oxide TAB* 400 MG PO SCH (11:22)
[2016-08-13] MEDS: Fluticasone NASAL SPRAY 50MCG* 16 gm SPRAY BTL BOTH NARES SCH (11:25)
--- NOTE | 2016-08-14 06:28 | DS ---
DISCHARGE SUMMARY: DATE OF ADMISSION: 08/11/16 DATE OF DISCHARGE: 08/13/16 PRINCIPAL DISCHARGE DIAGNOSIS: Complicated migraine. SECONDARY DIAGNOSES: 1. Hypertension. 2. Diabetes. 3. Degenerative joint disease. CONSULTS DURING HOSPITALIZATION: Too Sibley MD., Neurology. DISCHARGE MEDICATION REGIMEN: 1. Magnesium oxide 400 mg by mouth daily. 2. Aspirin 81 mg by mouth daily. 3. Loratadine 10 mg by mouth daily as needed for allergies. 4. Finasteride 5 mg by mouth daily. 5. Flonase 2 sprays in both nares daily. 6. Glipizide 2.5 mg every morning, 5 mg every night. 7. Metformin 500 mg every morning, 1000 mg every night. 8. Atorvastatin 40 mg by mouth daily. 9. Lantus 12 units subcutaneous at bedtime. 10. Toprol XL 25 mg by mouth daily. 11. Ramipril 20 mg by mouth daily. STUDIES DONE DURING HOSPITALIZATION: CT of the brain, impression: No evidence for gross acute infarct, mass effect or hemorrhage. Chest x-ray, impression: No evidence for acute disease. CTA of the head and neck, impression: No evidence for hemodynamically significant carotid stenosis or large vessel intracerebral thrombus. Transthoracic echocardiogram includes a mild concentric LVH, normal left ventricular systolic function. Ejection fraction of 60% to 65%. Trace aortic regurgitation, mild aortic stenosis, trace mitral regurgitation, [id number] pulmonic regurgitation. No patent foramen ovale. Compared to a prior report, the LV systolic function is better. MRI of the brain, impression: There are multiple foci of elevated T2/FLAIR signal within the periventricular and subcortical white matter. While these are nonspecific, they can be seen in association with migraine headache as a sequela. Previous infection or inflammation and chronic small vessel ischemia, demyelinating disease also within the differential, but is considered less likely in the absence of the appropriate clinical presentation. No restricted diffusion to suggest acute infarct. HISTORY OF PRESENT ILLNESS AND HOSPITAL SUMMARY: Please see the full history and physical by Dr. Rodolfo Lawson for full details. Briefly, Mr. Farley is a 75- year-old man with a past medical history as above, who presented to the hospital after he developed a significant headache, visual changes and aphagia after a nap. At the time, he was also noted to be extremely hypertensive. He was brought to the emergency room for further evaluation. He was significantly hypertensive in the emergency room as well. He was resumed on his home medications with improvement in his blood pressures. His symptoms resolved. The patient was seen by Neurology and underwent a full stroke workup that was largely negative. After further discussion, it was felt that this was likely due to a migraine and the patient will be discharged on oral magnesium for prophylaxis. He will followup with his PCP as well as with Dr. Sibley and Neurology for further treatment if needed. TIME SPENT: Total time spent on this discharge was 40 minutes. This is a summary of the hospitalization. Please see the full medical record for further details. [id number]/[facility] #: [id number] [facility]
== END 2016-08-13 12:32 | disposition home or self-care (01) | DRG 103 ==
LOC: ED 17:57 → MEDTELE 22:03
PROVIDERS: ADMIT Internal Medicine; ATTEND Hospitalist
DX: G43.109 Migraine with aura, not intractable, without status migrainosus (principal); E11.9 Type 2 diabetes mellitus without complications; R47.01 Aphasia; I37.1 Nonrheumatic pulmonary valve insufficiency; Z88.0 Allergy status to penicillin; I10 Essential (primary) hypertension; J45.909 Unspecified asthma, uncomplicated; Z87.442 Personal history of urinary calculi; M13.89 Other specified arthritis, multiple sites; Z98.42 Cataract extraction status, left eye; Z98.41 Cataract extraction status, right eye; Z85.038 Personal history of other malignant neoplasm of large intestine; F17.210 Nicotine dependence, cigarettes, uncomplicated; Z82.49 Family history of ischemic heart disease and other diseases of the circulatory system; Z80.3 Family history of malignant neoplasm of breast; N40.0 Benign prostatic hyperplasia without lower urinary tract symptoms; E66.3 Overweight; Z79.82 Long term (current) use of aspirin; Z79.4 Long term (current) use of insulin; I08.0 Rheumatic disorders of both mitral and aortic valves; Z68.30 Body mass index [BMI] 30.0-30.9, adult
CPT/HCPCS: 36415; 70450; 70496; 70498; 70551; 71010; 80053; 80061; 81003; 81015; 83605; 84153; 84484; 85025; 85610; 85730; 86850; 86900; 86901; 93005; A9270-GY; J1170; J1644; J2405; Q9967

== ENCOUNTER 2022-04-05 18:23 | Observation (INO) ==
[2022-04-05 19:08] LABS: ABS Eosinophils 0.1 10^3/ul (0-0.6); ABS Lymphocytes 1.1 10^3/ul (1.0-4.8); ABS Monocytes 0.4 10^3/ul (0-0.8); ABS Neutrophils 3.7 10^3/ul (1.5-7.7); Eosinophil % 2.4 %; Hematocrit 33 % (42-52); Hemoglobin 10.8 g/dL (14.0-18.0); Lymphocyte % 20.8 %; Mean Corpuscular HGB Conc 33 g/dL (31-36); Mean Corpuscular Hemoglobin 28 pg (27-31); Mean Corpuscular Volume 84 fL (80-94); Mean Platelet Volume 8.3 fL (7.4-10.4); Nucleated Red Blood Cells % 0.1; Platelet Count 157 10^3/uL (150-450); Red Blood Count 3.89 10^6 /uL (4.18-5.48); Red Cell Distribution Width 15 % (10-15); White Blood Count 5.3 10^3/uL (3.5-10.8)
[2022-04-05 19:32] LABS: High Sens Troponin Baseline 8 pg/mL (<20)
[2022-04-05 20:09] LABS: ALT < 3 U/L (7-52); AST 8 U/L (13-39); Albumin 3.8 g/dL (3.2-5.2); Albumin/Globulin Ratio 1.5 (1-3); Alkaline Phosphatase 70 U/L (35-149); Anion Gap 11 mmol/L (2-11); Blood Urea Nitrogen 41 mg/dL (6-24); CO2 Carbon Dioxide 28 mmol/L (22-32); Calcium 9.3 mg/dL (8.6-10.3); Chloride 105 mmol/L (101-111); Globulin 2.6 g/dL (2-4); Glucose 210 mg/dL (70-100); Potassium 4.1 mmol/L (3.5-5.0); Sodium 144 mmol/L (135-145); Total Protein 6.4 g/dL (6.4-8.9); eGFR CKD-EPI 39.2 (>60)
[2022-04-05 20:27] LABS: High Sensitivity Troponin 1 Hr 9 pg/mL (<20)
[2022-04-05] MEDS ORDERED: cefTRIAXone 1 gm/50 mL D5W 1 GM/50 ML BAG IV ONE (21:36)
[2022-04-05] MEDS: Insulin GLARGINE 100 un/ml 10 ml VIAL SUBCUT SCH (23:05)
[2022-04-06] MEDS ORDERED: Dextrose 50% Syringe 50 ml 25 GM/50 ML SYRINGE IV PUSH PRN (00:32)
[2022-04-06 05:55] LABS: Blood Urea Nitrogen 35 mg/dL (6-24); CO2 Carbon Dioxide 23 mmol/L (22-32); Calcium 7.6 mg/dL (8.6-10.3); Chloride 111 mmol/L (101-111); Glucose 185 mg/dL (70-100); Sodium 143 mmol/L (135-145); eGFR CKD-EPI 48.4 (>60)
[2022-04-06 06:53] LABS: Anion Gap 9 mmol/L (2-11)
[2022-04-06] MEDS: Heparin 5000 UNITS/ML 1 mL VIAL SUBCUT SCH ×2 (08:59→22:55)
[2022-04-06] MEDS: Aspirin EC 81 mg TAB.EC (enteric coated) PO SCH (08:59)
[2022-04-06] MEDS: Carbidopa/Levodop 25/100 MG TAB PO SCH ×3 (09:00→22:46)
[2022-04-06] MEDS ORDERED: cefTRIAXone 1 gm/50 mL D5W 1 GM/50 ML BAG IV SCH (22:00)
[2022-04-06] MEDS: Insulin GLARGINE 100 un/ml 10 ml VIAL SUBCUT SCH (23:01)
[2022-04-07 06:04] LABS: ABS Eosinophils 0.2 10^3/ul (0-0.6); ABS Lymphocytes 1.5 10^3/ul (1.0-4.8); ABS Monocytes 0.4 10^3/ul (0-0.8); ABS Neutrophils 2.5 10^3/ul (1.5-7.7); Eosinophil % 5.3 %; Hematocrit 33 % (42-52); Lymphocyte % 31.7 %; Mean Corpuscular HGB Conc 33 g/dL (31-36); Mean Corpuscular Hemoglobin 28 pg (27-31); Mean Corpuscular Volume 84 fL (80-94); Platelet Count 147 10^3/uL (150-450); Red Blood Count 3.91 10^6 /uL (4.18-5.48); Red Cell Distribution Width 15 % (10-15); White Blood Count 4.7 10^3/uL (3.5-10.8)
[2022-04-07 06:20] LABS: Calcium 9.1 mg/dL (8.6-10.3); Potassium 3.6 mmol/L (3.5-5.0); eGFR CKD-EPI 50.1 (>60)
[2022-04-07] MEDS: Carbidopa/Levodop 25/100 MG TAB PO SCH (10:13)
[2022-04-07] MEDS: Aspirin EC 81 mg TAB.EC (enteric coated) PO SCH (10:15)
[2022-04-07] MEDS: Heparin 5000 UNITS/ML 1 mL VIAL SUBCUT SCH (10:23)
[2022-04-07 10:58] VITALS: BP 88/52
== END 2022-04-07 14:10 | disposition home or self-care (01) ==
LOC: ED 18:23 → EDHOLD 18:23 → MED 04-06 15:31
PROVIDERS: ADMIT Internal Medicine; ATTEND Internal Medicine